=== PATIENT | female | born 1975 | race Caucasian/White ===

== ENCOUNTER 2025-04-03 14:40 | Emergency (ER) | payer MEDICARE, OTHER ==
[2025-04-03 15:35] LABS: PLATELET COUNT,PLT 303 K/uL (130-375); RED BLOOD CELL COUNT 4.50 M/uL (3.77-5.24); WHITE BLOOD CELL COUNT,WBC 7.8 K/uL (3.2-11.0)
[2025-04-03 15:38] LABS: APPEARANCE,URINE SLIGHTLY CLOUDY (CLEAR); GLUCOSE,URINE NEGATIVE (NEGATIVE); OCCULT BLOOD,URINE NEGATIVE (NEGATIVE)
[2025-04-03 15:49] LABS: AMPHETAMINES SCREEN, URINE NEGATIVE (NEGATIVE); METHADONE SCREEN, URINE NEGATIVE (NEGATIVE); METHAMPHETAMINES SCREEN, URINE NEGATIVE (NEGATIVE); OXYCODONE SCREEN,URINE NEGATIVE (NEGATIVE); PROPOXYPHENE SCREEN,URINE NEGATIVE (NEGATIVE); SQUAMOUS EPITHELIAL CELLS,UR RARE /HPF; THC SCREEN,URINE 50 NG/ML NEGATIVE (NEGATIVE); UROTHELIAL CELLS,URINE NOT SEEN /HPF
[2025-04-03 15:56] LABS: A/G RATIO 0.8 (1.2-2.2); ALANINE AMINOTRANSFERASE,ALT 25 U/L (12-78); ASPARTATE AMNIOTRANSFERASE,AST 13 U/L (15-37); BILIRUBIN TOTAL 0.2 mg/dL (0.2-1.0); BLOOD UREA NITROGEN,BUN 11 mg/dL (7-18); CARBON DIOXIDE,CO2 32 mmol/L (21-32); CHLORIDE,CL 104 mmol/L (100-108); CREATININE 0.8 mg/dL (0.6-1.0); EST CRCL DRUG DOSING (CG) 68.02 mL/min; ESTIMATED GFR 91 mL/min (>60); GLUCOSE RANDOM 107 mg/dL (74-106); POTASSIUM,K 3.6 mmol/L (3.6-5.2); PROTEIN TOTAL,TP 7.3 g/dL (6.4-8.2); SODIUM,NA 139 mmol/L (140-148)
[2025-04-03 16:00] LABS: BAND ABSOLUTE MAN 0.08 K/uL; BAND PERCENT MAN 1 % (5-11); EOSINOPHILS ABSOLUTE MAN 0.08 K/uL (0.00-0.40); EOSINOPHILS PERCENT MAN 1 % (2-4); LYMPHOCYTES ABSOLUTE MAN 2.73 K/uL (0.8-3.3); LYMPHOCYTES PERCENT MAN 35 % (24-44); METAMYELOCYTE ABSOLUTE MAN 0.08 K/uL; METAMYELOCYTE PERCENT MAN 1 %; MONOCYTES ABSOLUTE MAN 0.39 K/uL (0.20-0.90); MONOCYTES PERCENT MAN 5 % (2-6); NEUTROPHILS ABSOLUTE MAN 4.45 K/uL (1.0-7.6); SEG NEUTROPHILS PERCENT MAN 57 % (36-66)
[2025-04-03 16:01] LABS: ATYPICAL LYMPHOCYTES MODERATE
== END 2025-04-03 16:50 | disposition home or self-care (01) ==
LOC: JP.ED 14:40
DX: F44.4 Conversion disorder with motor symptom or deficit (principal); I10 Essential (primary) hypertension; Z86.73 Personal history of transient ischemic attack (TIA), and cerebral infarction without residual deficits
CPT/HCPCS: 36415; 80053; 80305-QW; 81001; 85025; 99285